=== PATIENT | female | born 1990 | race Caucasian/White ===

== ENCOUNTER → 2020-01-11 12:51 | Outpatient (CLI) | payer BC, SELFPAY ==
[2020-01-11 13:37] LABS: HCG,Quantitative < 2 mIU/ml (0-5.42)
== END ==
PROVIDERS: Visit Provider Nurse Practitioner Obstetrics & Gynecology
DX: Z32.00 Encounter for pregnancy test, result unknown (principal)
CPT/HCPCS: 36415; 84702